=== PATIENT | female | born 1975 | race Caucasian/White ===

== ENCOUNTER 2024-12-04 10:41 | Outpatient (CLI) | payer BC, SELFPAY | END 2024-12-04 10:42 | disposition home or self-care (01) | PROVIDERS: PCP Family Medicine; Visit Provider Family Medicine | DX: R63.5 Abnormal weight gain (principal); R53.83 Other fatigue; Z13.6 Encounter for screening for cardiovascular disorders; Z13.0 Encounter for screening for diseases of the blood and blood-forming organs and certain disorders involving the immune mechanism | CPT/HCPCS: 80053; 80061; 83690; 85025 ==

== ENCOUNTER 2025-02-01 15:52 | Outpatient (CLI) | payer BC, SELFPAY | END 2025-02-01 15:53 | disposition home or self-care (01) | PROVIDERS: PCP Family Medicine; Visit Provider Family Medicine | DX: Z13.21 Encounter for screening for nutritional disorder (principal); R53.83 Other fatigue; Z79.899 Other long term (current) drug therapy | CPT/HCPCS: 82306; 82607 ==